=== PATIENT | male | born 1975 | race Caucasian/White ===

== ENCOUNTER 2023-08-20 10:16 | Observation (INO) ==
[2023-08-20] MEDS ORDERED: KETOROLAC TROMETHAMINE 15 MG/ML VIAL IV ONE (11:07)
--- NOTE | 2023-08-20 11:11 | Emergency Department Note ---
History of Present Illness General Chief complaint: Knee Injury/Pain Stated complaint: RIGHT KNEE INJURY, PAIN Time Seen by Provider: 08/20/23 10:56 History of Present Illness Maximum Pain Intensity: 7 This is a 48-year-old male that presents to the emergency department via private vehicle with complaints of "right knee pain". The patient without trauma or injury this past /Monday developed stiffness and discomfort of the right knee that has progressed since that time. He notes progressive swelling of the right knee. He denies any redness to the knee. Perhaps a little bit of increased warmth to the right knee compared to the left. No preceding illness. No fevers or chills. Patient does note that he had a tick bite to the left hip about 1 or 2 months ago. No rashes. The patient denies any pertinent past medical history. He does note a history of wisdom teeth/tonsil extraction. The patient denies any associated fevers or chills. No chest pain or shortness of breath. Pain is worse with attempted range of motion of the right knee actively. Home Medications Medication Instructions Recorded Confirmed Type acetaminophen 325 mg capsule 325 mg PO QID PRN PAIN/FEVER 03/15/22 08/20/23 History (Tylenol) aspirin 81 mg tablet,delayed 81 mg PO PM 03/15/22 08/20/23 History release multivitamin (Daily Multi-Vitamin 1 tab PO PM 03/15/22 08/20/23 History tablet) escitalopram oxalate 20 mg tablet 20 mg PO PM 08/20/23 08/20/23 History (Lexapro) lisinopril 40 mg tablet 40 mg PO PM 08/20/23 08/20/23 History metoprolol succinate 25 mg 25 mg PO PM 08/20/23 08/20/23 History tablet,extended release 24 hr pantoprazole 40 mg tablet,delayed 40 mg PO PM 08/20/23 08/20/23 History release rosuvastatin 10 mg tablet 20 mg PO PM 08/20/23 08/20/23 History semaglutide 1 mg/dose (4 mg/3 mL) 1 mg subcut WK 08/20/23 08/20/23 History subcutaneous pen injector (Ozempic) Allergies Allergy/AdvReac Type Severity Reaction Status Date / Time No Known Allergies Allergy Unknown Verified 05/01/23 10:18 Past Med/Surg History Medical History Obesity Umbilical hernia, incarcerated Lumbar disc disease Hypertension Obstructive sleep apnea Anxiety GERD (gastroesophageal reflux disease) Hyperlipidemia Surgical History H/O carpal tunnel repair (~2009) L wrist - [place] - 2009. S/P tonsillectomy and adenoidectomy History of wisdom tooth extraction Family History Uncle Myocardial infarction Grandmother (Paternal) Myocardial infarction Coronary heart disease Grandmother (Maternal) Lung cancer Mother Diabetes Stroke Dyslipidemia Father Diabetes Kidney transplant recipient Dyslipidemia Uncle Prostate cancer Other Colonic polyp Colorectal cancer Denies family history of Ovarian cancer Breast cancer Social History Smoking Status: Never smoker Second Hand Exposure: No; Do You Dip or Chew Tobacco: No; Hx Alcohol Use: Yes Alcohol Intake Frequency: Monthly or Less Hx Substance Use: No Preferred Language: Vincentian Communication Ability: Effective Visual Impairment: Limited Hearing Ability: Normal Beliefs That Will Affect Care: None marital status: Current Living Situation: Family Current Living Situation Comment: Lives with spouse son and daughter current occupational status: employed current occupation: cdl truck driver How many Children do You have: 2 Feels Safe at Home: Yes Childhood Exposure to Second-Hand Smoke: No caffeine: Yes (Coffee and soda) during the past year weight has: remained stable Dental Care, Regularly: Yes Physical Activity Frequency: Daily Seatbelt Use: always Sunscreen Use: Yes Assistive Devices: CPAP Review of Systems A total of 10 systems reviewed and were otherwise negative Physical Exam Vital Signs Vital Signs - 24 hr 08/20/23 10:31 Temperature 36.3 C L Temperature Source Temporal Artery Scan Pulse Rate 97 H Respiratory Rate 18 Respiratory Effort / Characteristics Non-Labored Spontaneous Respiratory Depth Normal Blood Pressure 127/75 Blood Pressure Mean 92 Pulse Oximetry 99 Oxygen Delivery Method Room Air Sepsis Recent Fever Within 48 Hours No Sepsis New/Unexplained Change in Mental Status No Sepsis Action Taken by Nursing No Action Required VITAL SIGNS - Vital signs and nursing notes were reviewed. Stable and afebrile. GENERAL -48-year-old male appearing his stated age who is in no acute distress. Communicates well with provider and answers questions appropriately. SKIN -the right knee is with evidence of effusion noting edema in the suprapatellar area. There is no erythema. There is perhaps a mild amount of increased warmth to the right knee. HEAD - NC/AT. EYES - Sclera anicteric. EARS - No deformities of external structures noted on gross examination bilaterally. NOSE - Midline and without cyanosis. No epistaxis or purulent drainage noted. MOUTH/OROPHARYNX - Without perioral cyanosis. NECK - Neck with FROM. No nuchal rigidity. LUNGS - CTA CARDIAC - RRR EXTREMITIES - No clubbing or peripheral cyanosis. No pretibial edema present. Skin as above. Right knee joint effusion noted. Decreased active range of motion of the right knee secondary to pain. No right calf tenderness. No deformity. No break in the integument. No erythema. Perhaps minimal increased warmth to the right knee compared to the left. The right lower extremity is appropriately warm and well-perfused. Right dorsalis pedis pulse within normal limits. +5/5 strength noted in UE/LE bilaterally. NEUROLOGIC - Cranial nerves II through XII grossly intact. Patient is sensory intact throughout the right lower extremity without deficit. PSYCH - A&Ox3 and cooperates fully with examiner. Pt is very pleasant and interacts well with examiner. Course Administered Medications Vancomycin HCl 2,250 mg/ (Sodium Chloride) 545 mls @ 200 mls/hr IV ONE ONE Stop: 08/20/23 20:13 Last Admin: 08/20/23 17:55 Dose: 200 mls/hr Documented By: SUKHWINDER Discontinued Medications Colchicine (Colchicine 0.6 Mg Tab) 1.2 mg PO NOW ONE Stop: 08/20/23 16:41 Last Admin: 08/20/23 16:48 Dose: 1.2 mg Documented By: JACOB Cefazolin Sodium (Ancef 2000mg) 2,000 mg in 15 mls @ 3.75 mls/min IV NOW STA Stop: 08/20/23 15:56 Last Admin: 08/20/23 16:07 Dose: 3.75 mls/min Documented By: JOSUE Ketorolac Tromethamine (Ketorolac Tromethamine 15 Mg/Ml Vial) 10 mg IV NOW ONE Stop: 08/20/23 11:08 Last Admin: 08/20/23 11:24 Dose: 10 mg Documented By: BECKIE(2) Lidocaine HCl (Xylocaine 1%/Sod Bicarb 20 Ml Vial) 20 ml INFIL NOW ONE Stop: 08/20/23 12:33 Last Admin: 08/20/23 13:20 Dose: 2 ml Documented By: LEXX Oxycodone HCl (Oxycodone Hcl Ir 5 Mg Tab (Immediate Release)) 5 mg PO NOW STA Stop: 08/20/23 15:11 Last Admin: 08/20/23 15:15 Dose: 5 mg Documented By: JOSUE Medical Decision Making Laboratory Data 08/20/23 11:21 08/20/23 11:21 Lab Results 08/20/23 08/20/23 08/20/23 Range/Units 11:21 11:31 13:42 WBC 11.41 H (4.8-10.8) K/ul RBC 4.78 (4.70-6.10) M/uL Hgb 13.5 L (14.0-18.0) g/dl Hct 41.2 L (42.0-52.0) % MCV 86.2 (80.0-100.0) fL MCH 28.2 (25.0-34.0) pg MCHC 32.8 (32.0-36.0) g/dL RDW Std Deviation 42.5 (36.4-46.3) fL RDW Coeff of Sharifa 13.5 (11.5-14.5) % Plt Count 326 (130-400) K/uL MPV 10.5 (9.4-12.4) fL Immature Gran % (Auto) 0.6 % Neut % (Auto) 79.6 % Lymph % (Auto) 10.3 % [place] % (Auto) 8.8 % Eos % (Auto) 0.3 % Baso % (Auto) 0.4 % Neut # (Auto) 9.10 H (1.40-6.50) K/uL Lymph # (Auto) 1.17 L (1.20-3.40) K/uL [place] # (Auto) 1.00 H (0.11-0.59) K/uL Eos # (Auto) 0.03 (0.00-0.50) K/uL Baso # (Auto) 0.04 (0.00-0.20) K/uL Immature Gran # (Auto) 0.07 (0.01-0.20) K/uL ESR 70 H (0-15) mm/hr Sodium 137 (136-145) mmol/L Potassium 4.4 (3.5-5.1) mmol/L Chloride 101 (98-107) mmol/L Carbon Dioxide 30 (21-32) mmol/L Anion Gap 6 (3-11) BUN 13 (6-23) mg/dl Creatinine 0.79 (0.6-1.4) mg/dl Est Cr Clr Drug Dosing Not Reportable Est GFR ( Amer) 123.1 ml/min Est GFR (Non-Af Amer) 106.2 ml/min BUN/Creatinine Ratio 16.5 (10-20) Glucose 104 H (70-99(Fasting)) mg/dl Uric Acid 5.9 (2.6-7.2) mg/dl Calcium 9.5 (8.6-10.3) mg/dl Total Bilirubin 0.6 (0.2-1.0) mg/dl AST 13 (13-39) U/L ALT 15 (7-52) U/L Alkaline Phosphatase 45 (34-104) U/L C-Reactive Protein 19.71 H (0-0.5) mg/dl Total Protein 7.8 (6.0-8.3) gm/dl Albumin 4.3 (3.4-5.0) gm/dl Globulin 3.5 (2.5-4.0) gm/dl Albumin/Globulin Ratio 1.2 (0.9-2) Procalcitonin 0.17 (0-0.5) ng/ml Fluid Comment Synovial Source Right Knee Synovial Color Meghan Synovial Appearance Cloudy Synovial WBC (Auto) 37674 H (0-200) /ul Synovial RBC (Auto) 75191 /uL Synovial Polynuclear % 93.8 % Synovial Mononuclear % 6.2 % Lyme Disease IgG Ab Negative (Negative) Lyme Disease IgM Ab Negative (Negative) Imaging Data Radiologist's Impression: Knee X-Ray 08/20/23 10:42 RIGHT KNEE 2 VIEWS CLINICAL HISTORY: Atraumatic right knee pain. FINDINGS: AP and crosstable lateral views of the right knee are obtained. No prior studies are available for comparison at the time of dictation. The skeletal structures are well mineralized. No fracture is seen. There is degenerative narrowing at the patellofemoral articulation. The medial and lateral joint spaces are maintained. There are small patellar enthesophytes, marginal osteophytes, and degenerative beaking of the tibial spine. There is a joint effusion. Mild soft tissue swelling is seen around the knee. IMPRESSION: 1. Soft tissue swelling and joint effusion with no radiographic evidence of acute fracture. 2. Mild degenerative change as above. Electronically signed by: Timo Oseguera M.D. 08/20/2023 11:11 AM [facility] Narrative Patient was seen and evaluated as above in room D5. Review was performed of nursing notes and vital signs. After obtaining a thorough history and physical examination the above work up was performed. Patient presents to us today for evaluation of right knee pain. No known trauma or injury. I suspect joint effusion clinically. Patient did have an x-ray ordered from triage and I reviewed the imaging. Joint effusion suspected. Patient does note that he was bitten by a tick 1 to 2 months ago. Options of care were discussed with the patient. IV access was established. Labs were drawn. He was offered something for pain and elected to proceed. IV Toradol was felt to be reasonable. No contraindication identified. Patient was reevaluated with some improvement. There is minimal leukocytosis 11.41. Mild anemia with hemoglobin of 13.5. No emergent metabolic disturbance. Mild hyperglycemia 104. The uric acid level was normal. Lyme testing was negative. The patient does have a large joint effusion by exam and x-ray. I do believe it to be reasonable at this time to proceed with synovial fluid analysis. Verbal consent was obtained and benefit versus risk of arthrocentesis discussed. Ultrasound was utilized at bedside for best approach. Area was then marked. Region was prepped x 3 with iodine. I used 2 mL of 1% lidocaine to anesthetize the superficial tissues. 18-gauge needle was then gently advanced and synovial fluid was immediately identified and drawn into the syringe. 10 cc were then sent to the lab. This was straw-colored in nature with a tiny bit of blood at the end of the draw. Region was then cleansed again with sterile saline, iodine and then dried with sterile gauze. A bacitracin dressing was applied followed by Aleksandr wrap. Synovial fluid analysis reveals 03558 WBCs. 15,000 RBCs. Crystals, Lyme and culture pending at this time. I called and spoke with the orthopedist at 3:33 PM. I spoke with Dr. Velasco. Recommendation at this time is admission, IV antibiotics, oral colchicine, n.p.o. after midnight and await remainder of the synovial fluid tests. I then presented these recommendations to the patient. Patient amenable to plan of care. Case discussed with hospitalist service. Please refer to further documentation regarding his stay. GCS: 15 In the evaluation and treatment of this patient the following differential diagnoses were entertained: Sprain, strain, fracture, dislocation, subluxation, contusion, Lyme disease, septic arthritis, crystal disease/gout, among others. Impression & Plan Effusion of knee joint right, Generalized nontraumatic pain of knee region, Knee pain Discharge Plan Visit Data Chief Complaint: Knee Injury/Pain Stated Complaint: RIGHT KNEE INJURY, PAIN ED Provider: Iain Colón ED Midlevel Provider: Kwabena Butler Discharge Problem: Effusion of knee joint right, Generalized nontraumatic pain of knee region, Knee pain Patient Disposition: Admitted As Inpatient Condition: Good Discharge Instructions Interventions: ED Discharge Assessment Last Done: 08/20/23 18:10 Discharge Problem: Knee pain Qualifiers: Chronicity: acute Laterality: right Qualified Code(s): M25.561 - Pain in right knee
--- NOTE | 2023-08-20 11:12 | XRay Report ---
RIGHT KNEE 2 VIEWS CLINICAL HISTORY: Atraumatic right knee pain. FINDINGS: AP and crosstable lateral views of the right knee are obtained. No prior studies are availa ble for comparison at the time of dictation. The skeletal structures are well mineralized. No fractur e is seen. There is degenerative narrowing at the patellofemoral articulation. The medial and lateral joint spaces are maintained. There are small patellar enthesophytes, marginal osteophytes, and degen erative beaking of the tibial spine. There is a joint effusion. Mild soft tissue swelling is seen augie und the knee. IMPRESSION: 1. Soft tissue swelling and joint effusion with no radiographic evidence of acute fracture. 2. Mild degenerative change as above. Electronically signed by: Timo Oseguera M.D. 08/20/2023 11:11 AM
[2023-08-20 11:46] LABS: Basophils # (auto) 0.04 K/uL (0.00-0.20); Basophils % (auto) 0.4 %; Eosinophils # (auto) 0.03 K/uL (0.00-0.50); Eosinophils % (auto) 0.3 %; Hematocrit (blood only) 41.2 % (42.0-52.0); Hemoglobin 13.5 g/dl (14.0-18.0); Immature Granulocytes # (auto) 0.07 K/uL (0.01-0.20); Immature Granulocytes % (auto) 0.6 %; Lymphocytes # (auto) 1.17 K/uL (1.20-3.40); Lymphocytes % (auto) 10.3 %; Mean Corpuscular Hemoglobin 28.2 pg (25.0-34.0); Mean Corpuscular Hgb Conc 32.8 g/dL (32.0-36.0); Mean Corpuscular Volume 86.2 fL (80.0-100.0); Mean Platelet Volume 10.5 fL (9.4-12.4); Monocytes % (auto) 8.8 %; Neutrophils % (auto) 79.6 %; Platelet Count 326 K/uL (130-400); RDW Coefficient of Variation 13.5 % (11.5-14.5); RDW Standard Deviation 42.5 fL (36.4-46.3); Red Blood Count 4.78 M/uL (4.70-6.10); White Blood Count 11.41 K/ul (4.8-10.8)
[2023-08-20 12:03] LABS: Alanine Aminotransferase 15 U/L (7-52); Albumin Globulin Ratio 1.2 (0.9-2); Albumin Level 4.3 gm/dl (3.4-5.0); Alkaline Phosphatase 45 U/L (34-104); Anion Gap 6 (3-11); Aspartate Aminotransferase 13 U/L (13-39); BUN Creatinine Ratio 16.5 (10-20); Bilirubin,Total 0.6 mg/dl (0.2-1.0); Blood Urea Nitrogen 13 mg/dl (6-23); Calcium 9.5 mg/dl (8.6-10.3); Carbon Dioxide 30 mmol/L (21-32); Chloride 101 mmol/L (98-107); Est GFR (African American) 123.1 ml/min; Est GFR (Non-African American) 106.2 ml/min; Globulin 3.5 gm/dl (2.5-4.0); Glucose 104 mg/dl (70-99(Fasting)); Potassium 4.4 mmol/L (3.5-5.1); Sodium 137 mmol/L (136-145); Total Protein 7.8 gm/dl (6.0-8.3); Uric Acid 5.9 mg/dl (2.6-7.2)
[2023-08-20 12:24] LABS: Lyme Ab IgG w/WB Rflx Negative (Negative); Lyme Ab IgM w/WB Rflx Negative (Negative)
[2023-08-20] MEDS ORDERED: XYLOCAINE 1%/SOD BICARB 20 ML VIAL INFIL ONE (12:32)
[2023-08-20 14:22] LABS: Appearance Synovial Fluid Cloudy; Color Synovial Fluid Amber; Mononuclear WBC Synovial 6.2 %; Polynuclear WBC Synovial 93.8 %; RBC Synovial Fluid Auto 15000 /uL; Source Synovial Fluid Right Knee; WBC Synovial Fluid Auto 44345 /ul (0-200)
[2023-08-20] MEDS ORDERED: oxyCODONE HCL IR 5 MG TAB (IMMEDIATE RELEASE) PO STA (15:10)
[2023-08-20] MEDS ORDERED: ceFAZolin 2000MG 2,000 MG/15 ML SYR IV STA (15:53)
--- NOTE | 2023-08-20 16:27 | History & Physical Report ---
Date of Service August 20, 2023 Assessment & Plan (1) Right knee pain: Plan: -Admit to med/surge -Currently stable, non-toxic appearing, and with pain currently controlled -Presented to the ED today for 4 days of progressive pain and swelling of the right knee -Patient denies fever, has mild leukocytosis, limited ROM due to pain -No recent trauma or injury to the RLE, denies history of previous episode in other joints and hx of Gout -Xray is negative for acute trauma but does show soft tissue swelling/effusion -ED spoke with Orthopedics, recommends admission with starting IV antibiotics and colchicine to cover possible septic arthritis and gout -Continue to follow infectious workup -S/P one dose of ancef in the ED -Will start 48 hours empiric Vancomycin to cover for MRSA -Will give 1.2 mg Colchicine today followed by 0.6 mg Daily for now -Orthopedics consult placed -Hold chemical DVT PPX for now with possible OR tomorrow, RODNEY's for now -HH Diet until midnight then NPO -AM cbc, bmp, mag (2) Hypertension: Plan: -Stable -Continue lisinopril, and metroprolol (3) Obstructive sleep apnea: Plan: -HS CPAP ordered (4) Anxiety: Plan: -Continue Lexapro (5) GERD (gastroesophageal reflux disease): Plan: -Continue PPI Plan The patient was discussed with Dr. Downs at the time of the admission History of Present Illness Chief Complaint: Right knee swelling/pain Primary Care Provider: BUCK Sebastian Pk is 48 year old male with a PMH significant for Hypertension, Hypercholesterolemia, GERD, LENARD, Anxiety, Lumbar Degenerative Disc Disease, and Bilateral Carotid Plaques who presented to the [facility] ED on 08/20 for progressive right knee swelling, pain, and ambulatory dysfunction. He remained stable in the ED. Labs were significant for a leukocytosis of 11 with neutrophile predominance 9. Xray of the right was read as "1. Soft tissue swelling and joint effusion with no radiographic evidence of acute fracture. 2. Mild degenerative change as above". The ED obtained synovial fluid analysis which shows butch, cloudy fluid [place] [address]84[address] WBC, 86405 RBC, with synovial crystal level pending. The ED spoke to Orthopedics who recommended medicine admission, starting Colchicine and IV antibiotics, and NPO at midnight if the patient needs to go to the OR tomorrow. Prior to admission the patient was given 10 mg IV toradol, 5 mg PO oxycodone, and 2gm IV ancef. At the time of the exam the patient was sitting in bed in no acute distress. He states that he had been in his normal state of health until he started to develop mild right knee pain on 07/18. The pain significantly progressed on 07/19 with increased swelling. He works for a [employer] and is on his feet for 10+ hours every shift. He worked a full shift on 07/19. Since then his pain and swelling has been so severe that he cannot put weight on the knee. He denies recent fever, chills, chest pain, SOB, abd pain, nausea, vomiting, diarrhea, dysuria, hematuria, melena, and recent trauma/injury to the RLE. His pain is currently undder control after the 5 mg PO oxycodone in the ED. He explains that he is pre-diabetic and is on Ozempic for weight loss at this time. He denies tobacco or alcohol use. He is a full code. Please refer to Dr. Downs's attestation for any changes to the treatment plan Allergies Allergy/AdvReac Type Severity Reaction Status Date / Time No Known Allergies Allergy Unknown Verified 05/01/23 10:18 Home Medications Medication Instructions Recorded Confirmed Type acetaminophen 325 mg capsule 325 mg PO QID PRN PAIN/FEVER 03/15/22 08/20/23 History (Tylenol) aspirin 81 mg tablet,delayed 81 mg PO PM 03/15/22 08/20/23 History release multivitamin (Daily Multi-Vitamin 1 tab PO PM 03/15/22 08/20/23 History tablet) escitalopram oxalate 20 mg tablet 20 mg PO PM 08/20/23 08/20/23 History (Lexapro) lisinopril 40 mg tablet 40 mg PO PM 08/20/23 08/20/23 History metoprolol succinate 25 mg 25 mg PO PM 08/20/23 08/20/23 History tablet,extended release 24 hr pantoprazole 40 mg tablet,delayed 40 mg PO PM 08/20/23 08/20/23 History release rosuvastatin 10 mg tablet 20 mg PO PM 08/20/23 08/20/23 History semaglutide 1 mg/dose (4 mg/3 mL) 1 mg subcut WK 08/20/23 08/20/23 History subcutaneous pen injector (Ozempic) Past Med/Surg History Medical History Obesity Umbilical hernia, incarcerated Lumbar disc disease Hypertension Obstructive sleep apnea Anxiety GERD (gastroesophageal reflux disease) Hyperlipidemia Surgical History H/O carpal tunnel repair (~2009) L wrist - [place] - 2009. S/P tonsillectomy and adenoidectomy History of wisdom tooth extraction Family History Uncle Myocardial infarction Grandmother (Paternal) Myocardial infarction Coronary heart disease Grandmother (Maternal) Lung cancer Mother Diabetes Stroke Dyslipidemia Father Diabetes Kidney transplant recipient Dyslipidemia Uncle Prostate cancer Other Colonic polyp Colorectal cancer Denies family history of Ovarian cancer Breast cancer Social History Smoking Status: Never smoker Second Hand Exposure: No; Do You Dip or Chew Tobacco: No; Hx Alcohol Use: No Hx Substance Use: No Preferred Language: Hungarian Communication Ability: Effective Visual Impairment: Limited Hearing Ability: Normal Fan Runner Required: No Beliefs That Will Affect Care: None marital status: Current Living Situation: Family Current Living Situation Comment: Lives with spouse son and daughter current occupational status: employed current occupation: delivery driver/supervisor How many Children do You have: 2 Other Information That Helps Us Care for You: No Feels Safe at Home: Yes Safety Concerns: Feels Safe At This Time Childhood Exposure to Second-Hand Smoke: No caffeine: Yes (Coffee and soda) during the past year weight has: remained stable Dental Care, Regularly: Yes Physical Activity Frequency: Daily Seatbelt Use: always Sunscreen Use: Yes Assistive Devices: Contacts Physical Exam Physical Exam: Physical Exam: General: In no acute distress, stated age, well-nourished, good hygiene HEENT: Normocephalic, atraumatic, no scleral icterus, pupils around round, symmetrical, and reactive to light, moist mucus membranes, trachea midline, no thyromegaly Chest/Pulm: No respiratory distress, symmetrical chest expansion, clear breath sounds throughout Cardiac: RRR, no murmurs noted Abdomen: Negative for ascites and bruising, normoactive bowel sounds, soft, non-tender to palpation throughout Musculoskeletal: Right knee with obvious joint effusion, significantly tender to palpation and with movement, patient is without signs of erythema or cellulitis of the right knee and RLE, limited ROM of the right knee due to pain Extremities: Radial, dorsalis pedis, and posterior tibial pulses are intact and symmetrical, no edema noted in the BL LE's Skin: Warm, dry, no rashes , lesions, or scars noted Neuro: Alert and oriented to person, place, month, year, and president, no focal defects, no tremors noted Psych: No acute distress, calm and cooperative during the exam Results & Data Results & Data Vital Signs (Past 12 Hours) Vital Signs Temp Pulse Resp BP Pulse Ox O2 Del Method 08/20/23 10:31 36.3 C L 97 H 18 127/75 99 Room Air Laboratory Results Abnormal lab results 08/20/23 08/20/23 Range/Units 11:21 13:42 WBC 11.41 H (4.8-10.8) K/ul Hgb 13.5 L (14.0-18.0) g/dl Hct 41.2 L (42.0-52.0) % Neut # (Auto) 9.10 H (1.40-6.50) K/uL Lymph # (Auto) 1.17 L (1.20-3.40) K/uL [place] # (Auto) 1.00 H (0.11-0.59) K/uL ESR 70 H (0-15) mm/hr Glucose 104 H (70-99(Fasting)) mg/dl C-Reactive Protein 19.71 H (0-0.5) mg/dl Synovial WBC (Auto) 48388 H (0-200) /ul Diagnostic Findings Knee X-Ray 08/20/23 10:42 RIGHT KNEE 2 VIEWS CLINICAL HISTORY: Atraumatic right knee pain. FINDINGS: AP and crosstable lateral views of the right knee are obtained. No prior studies are available for comparison at the time of dictation. The skeletal structures are well mineralized. No fracture is seen. There is degenera tive narrowing at the patellofemoral articulation. The medial and lateral joint spaces are maintained. There are small patellar enthesophytes, marginal osteophytes, and degenerative beaking of the tibial spine. There is a joint effusion. Mild soft tissue swelling is seen around the knee. IMPRESSION: 1. Soft tissue swelling and joint effusion with no radiographic evidence of acute fracture. 2. Mild degenerative change as above. Electronically signed by: Timo Oseguera M.D. 08/20/2023 11:11 AM Code Status & VTE Plan Code Status Full code VTE Prophylaxis Plan VTE Prophylaxis will be ordered: Yes Supervising Physician Co-Signing Physician Notes I personally saw and examined the patient. I verified all moran points and agree with Rubén Cartagena PA-C with the following exceptions and/or additions: 48 year old male presents to the ER with spontaneous right knee effusion. No prior effusions or known arthritis. No known trauma but he does work in warehouse. O/E No rash, right knee effusion without overlying skin changes, unable to flex beyond 90 degrees due to pain, no catching, too painful for ligament testing. A/P Right knee effusion - Antibiotics as advised by orthopedics pending culture although reassuringly his gram stain is negative. Will add ceftriaxone to vancomycin as no gram stain to base antibiotic on and at risk age group for gonococcal infections. More likely gout awaiting crystal pathology which will be done tomorrow. Consult orthopedics. Suspect this is more than just localized inflammation from an injury given elevated CRP/ESR and agree with colchicine empirically since gout appears to be the most likely diagnosis. PG Care Time/CCT Total # of Minutes Spent Total Time Spent with Patient: Total time spent is greater than 50% in coordination of care (as documented) at patient's floor/unit and/or counseling patient: [place] [address] INT INP/OBS CARE 2/55MIN Patient Type Established Medical Decision Making Moderate Complexity Diagnoses Right knee pain M25.561 Hypertension I10 Obstructive sleep apnea G47.33 Anxiety F41.9 GERD (gastroesophageal reflux disease) K21.9
[2023-08-20] MEDS ORDERED: ACETAMINOPHEN 325 MG TAB PO PRN (16:37)
[2023-08-20 16:40] LABS: C Reactive Protein 19.71 mg/dl (0-0.5)
[2023-08-20] MEDS ORDERED: COLCHICINE 0.6 MG TAB PO ONE (16:40)
[2023-08-20] MEDS ORDERED: VANCOMYCIN CONSULT ACTIVE PRN (17:02)
[2023-08-20] MEDS ORDERED: PANTOprazole 40 MG TAB PO STA (17:08)
[2023-08-20] MEDS ORDERED: VANCOMYCIN HCL 2,250 MG in SODIUM CHLORIDE 0.9% 500 ML IV ONE (17:30)
[2023-08-20] MEDS ORDERED: INFLUENZA VIRUS QUADRIVALENT VACCINE (IIV4) 0.5 ML SYR IM ONE (18:22)
--- NOTE | 2023-08-20 18:55 | Orthopedic Consultation ---
Date of Consultation August 20, 2023 Assessment & Plan (1) Knee pain: Findings discussed. This could be gout pseudogout Lyme disease or septic bacterial arthritis. Currently there is nothing to differentiate amongst these. We will not have any Gram stain or culture results back until tomorrow. I will not have crystal analysis done until tomorrow. X-rays are reviewed and show an effusion but nothing in terms of fracture or arthritis. Sed rate and C-reactive protein are both markedly elevated and his white count is slightly elevated at 11. I would recommend that we treat for both conditions and await lab information. Started on colchicine as well as vancomycin which has been done by the medical service. Thank you. N.p.o. after midnight. I discussed with him the treatment for bacterial septic arthritis would be surgery. Gout can be treated medically or possibly with an injection. Will hold on doing anything further until we get more information. History of Present Illness Attending Physician: Nico Downs MD History of Present Illness Pk is 48. He has a 3-day history progressive right knee pain and swelling. Came to the ER. The knee was aspirated. I was consulted for further evaluation. There is no history of injury. He has never had anything like gout. He may have had strep throat a month ago. He denies fever chills or sweats. At rest pain is 1 out of 10. With movement pain is 6 out of 10. Allergies Allergy/AdvReac Type Severity Reaction Status Date / Time No Known Allergies Allergy Unknown Verified 05/01/23 10:18 Home Medications Medication Instructions Recorded Confirmed Type acetaminophen 325 mg capsule 325 mg PO QID PRN PAIN/FEVER 03/15/22 08/20/23 History (Tylenol) aspirin 81 mg tablet,delayed 81 mg PO PM 03/15/22 08/20/23 History release multivitamin (Daily Multi-Vitamin 1 tab PO PM 03/15/22 08/20/23 History tablet) escitalopram oxalate 20 mg tablet 20 mg PO PM 08/20/23 08/20/23 History (Lexapro) lisinopril 40 mg tablet 40 mg PO PM 08/20/23 08/20/23 History metoprolol succinate 25 mg 25 mg PO PM 08/20/23 08/20/23 History tablet,extended release 24 hr pantoprazole 40 mg tablet,delayed 40 mg PO PM 08/20/23 08/20/23 History release rosuvastatin 10 mg tablet 20 mg PO PM 08/20/23 08/20/23 History semaglutide 1 mg/dose (4 mg/3 mL) 1 mg subcut WK 08/20/23 08/20/23 History subcutaneous pen injector (Ozempic) Patient History Medical History Obesity Umbilical hernia, incarcerated Lumbar disc disease Hypertension Obstructive sleep apnea Anxiety GERD (gastroesophageal reflux disease) Hyperlipidemia Surgical History H/O carpal tunnel repair (~2009) L wrist - [place] - 2009. S/P tonsillectomy and adenoidectomy History of wisdom tooth extraction Family History Uncle Myocardial infarction Grandmother (Paternal) Myocardial infarction Coronary heart disease Grandmother (Maternal) Lung cancer Mother Diabetes Stroke Dyslipidemia Father Diabetes Kidney transplant recipient Dyslipidemia Uncle Prostate cancer Other Colonic polyp Colorectal cancer Denies family history of Ovarian cancer Breast cancer Social History Smoking Status: Never smoker Second Hand Exposure: No; Do You Dip or Chew Tobacco: No; Hx Alcohol Use: No Hx Substance Use: No Preferred Language: Faroese Communication Ability: Effective Visual Impairment: Limited Hearing Ability: Normal Internal Affairs Investigator Required: No Beliefs That Will Affect Care: None marital status: Current Living Situation: Family Current Living Situation Comment: Lives with spouse son and daughter current occupational status: employed current occupation: cdl dedicated truck driver How many Children do You have: 2 Other Information That Helps Us Care for You: No Feels Safe at Home: Yes Safety Concerns: Feels Safe At This Time Childhood Exposure to Second-Hand Smoke: No caffeine: Yes (Coffee and soda) during the past year weight has: remained stable Dental Care, Regularly: Yes Physical Activity Frequency: Daily Seatbelt Use: always Sunscreen Use: Yes Assistive Devices: Contacts Physical Exam Physical Exam: DP and PT pulses are 1+. Sensation intact ankle and toe plantarflexion dorsiflexion inversion eversion is 5 out of 5. Knee motion is 0/10/60. There is no significant pain with movement of the hip. Palpation of the knee is tender diffusely. Grossly intact Ciro as well as varus and valgus stress. Large right knee effusion with increased warmth but no erythema or induration. Thigh foot ankle leg and calf are unremarkable. Sensation is intact to light touch. Results & Data Vital Signs (Past 12 Hours) Vital Signs Temp Pulse Pulse Resp BP BP Pulse Ox 08/20/23 17:45 36.9 C 89 16 134/71 95 08/20/23 17:31 15 103/60 98 08/20/23 10:31 36.3 C L 97 H 18 127/75 99 O2 Del Method 08/20/23 17:45 Room Air 08/20/23 17:31 Room Air 08/20/23 10:31 Room Air Laboratory Results Laboratory Results WBC 11.41 K/ul (4.8-10.8) H 08/20/23 11:21 RBC 4.78 M/uL (4.70-6.10) 08/20/23 11:21 Hgb 13.5 g/dl (14.0-18.0) L 08/20/23 11:21 Hct 41.2 % (42.0-52.0) L 08/20/23 11:21 MCV 86.2 fL (80.0-100.0) 08/20/23 11:21 MCH 28.2 pg (25.0-34.0) 08/20/23 11:21 MCHC 32.8 g/dL (32.0-36.0) 08/20/23 11:21 RDW Std Deviation 42.5 fL (36.4-46.3) 08/20/23 11:21 RDW Coeff of Sharifa 13.5 % (11.5-14.5) 08/20/23 11:21 Plt Count 326 K/uL (130-400) 08/20/23 11:21 MPV 10.5 fL (9.4-12.4) 08/20/23 11:21 Immature Gran % (Auto) 0.6 % 08/20/23 11:21 Neut % (Auto) 79.6 % 08/20/23 11:21 Lymph % (Auto) 10.3 % 08/20/23 11:21 Latimer % (Auto) 8.8 % 08/20/23 11:21 Eos % (Auto) 0.3 % 08/20/23 11:21 Baso % (Auto) 0.4 % 08/20/23 11:21 Neut # (Auto) 9.10 K/uL (1.40-6.50) H 08/20/23 11:21 Lymph # (Auto) 1.17 K/uL (1.20-3.40) L 08/20/23 11:21 Latimer # (Auto) 1.00 K/uL (0.11-0.59) H 08/20/23 11:21 Eos # (Auto) 0.03 K/uL (0.00-0.50) 08/20/23 11:21 Baso # (Auto) 0.04 K/uL (0.00-0.20) 08/20/23 11:21 Immature Gran # (Auto) 0.07 K/uL (0.01-0.20) 08/20/23 11:21 ESR 70 mm/hr (0-15) H 08/20/23 11:21 Sodium 137 mmol/L (136-145) 08/20/23 11:21 Potassium 4.4 mmol/L (3.5-5.1) 08/20/23 11:21 Chloride 101 mmol/L (98-107) 08/20/23 11:21 Carbon Dioxide 30 mmol/L (21-32) 08/20/23 11:21 Anion Gap 6 (3-11) 08/20/23 11:21 BUN 13 mg/dl (6-23) 08/20/23 11:21 Creatinine 0.79 mg/dl (0.6-1.4) 08/20/23 11:21 Est Cr Clr Drug Dosing Not Reportable 08/20/23 11:21 Est GFR ( Amer) 123.1 ml/min 08/20/23 11:21 Est GFR (Non-Af Amer) 106.2 ml/min 08/20/23 11:21 BUN/Creatinine Ratio 16.5 (10-20) 08/20/23 11:21 Glucose 104 mg/dl (70-99(Fasting)) H 08/20/23 11:21 Uric Acid 5.9 mg/dl (2.6-7.2) 08/20/23 11:21 Calcium 9.5 mg/dl (8.6-10.3) 08/20/23 11:21 Total Bilirubin 0.6 mg/dl (0.2-1.0) 08/20/23 11:21 AST 13 U/L (13-39) 08/20/23 11:21 ALT 15 U/L (7-52) 08/20/23 11:21 Alkaline Phosphatase 45 U/L (34-104) 08/20/23 11:21 C-Reactive Protein 19.71 mg/dl (0-0.5) H 08/20/23 11:21 Total Protein 7.8 gm/dl (6.0-8.3) 08/20/23 11:21 Albumin 4.3 gm/dl (3.4-5.0) 08/20/23 11:21 Globulin 3.5 gm/dl (2.5-4.0) 08/20/23 11:21 Albumin/Globulin Ratio 1.2 (0.9-2) 08/20/23 11:21 Procalcitonin 0.17 ng/ml (0-0.5) 08/20/23 11:31 Fluid Comment 08/20/23 13:42 Synovial Source Right Knee 08/20/23 13:42 Synovial Color Meghan 08/20/23 13:42 Synovial Appearance Cloudy 08/20/23 13:42 Synovial WBC (Auto) 47313 /ul (0-200) H 08/20/23 13:42 Synovial RBC (Auto) 42832 /uL 08/20/23 13:42 Synovial Polynuclear % 93.8 % 08/20/23 13:42 Synovial Mononuclear % 6.2 % 08/20/23 13:42 Lyme Disease IgG Ab Negative (Negative) 08/20/23 11:21 Lyme Disease IgM Ab Negative (Negative) 08/20/23 11:21 Impressions Knee X-Ray 08/20/23 10:42 RIGHT KNEE 2 VIEWS CLINICAL HISTORY: Atraumatic right knee pain. FINDINGS: AP and crosstable lateral views of the right knee are obtained. No prior studies are available for comparison at the time of dictation. The skeletal structures are well mineralized. No fracture is seen. There is degenerative narrowing at the patellofemoral articulation. The medial and lateral joint spaces are maintained. There are small patellar enthesophytes, marginal osteophytes, and degenerative beaking of the tibial spine. There is a joint effusion. Mild soft tissue swelling is seen around the knee. IMPRESSION: 1. Soft tissue swelling and joint effusion with no radiographic evidence of acute fracture. 2. Mild degenerative change as above. Electronically signed by: Timo Oseguera M.D. 08/20/2023 11:11 AM (1) Knee pain Chronicity: acute Laterality: right Qualified Code(s): M25.561 - Pain in right knee
--- NOTE | 2023-08-20 19:03 | Pharmacy Report ---
Pharmacy PK ABX Note - Date of Service August 20, 2023 - Assessment and Plan Assessment 48 year old M receiving VANC-IV for EMPIRIC treatment of R KNEE PAIN/SWELLING. Cultures pending. Day # 1 of antimicrobial therapy. Plan Vancomycin * Loading dose: 2250mg (21mg/kg) IV x 1 * Maintenance dose: 1750mg IV every 12 hours * Regimen is predicted to achieve target AUC/NASRIN of 400-600 mg/L.hr * Will reassess need for a Vanc random level 08/21. Pharmacy will continue to follow and will adjust dose/frequency as necessary. Thank you. Pharmacy has transitioned to AUC monitoring for vancomycin. AUC/NASRIN is the preferred PK/PD target and is associated with decreased risk of nephrotoxicity compared to traditional trough targets.
[2023-08-20] MEDS ORDERED: ESCITALOPRAM OXALATE 20 MG TAB PO SCH (21:00)
[2023-08-20] MEDS ORDERED: ROSUVASTATIN CALCIUM 20 MG TAB PO SCH (21:00)
[2023-08-20] MEDS ORDERED: ASPIRIN 81 MG ECTAB PO SCH (21:00)
[2023-08-20] MEDS ORDERED: METOPROLOL SUCC 25MG EXT REL TAB PO SCH (21:00)
[2023-08-20] MEDS ORDERED: lisinopril 40 MG TAB PO SCH (21:00)
[2023-08-20] MEDS ORDERED: cefTRIAXone SODIUM 2,000 MG in DEXTROSE 5 % MINI-B 50 ML IV SCH (21:00)
[2023-08-20] MEDS ORDERED: PANTOprazole 40 MG TAB PO SCH (21:00)
[2023-08-20] MEDS: oxyCODONE HCL IR 5 MG TAB (IMMEDIATE RELEASE) PO PRN (21:29)
[2023-08-21] MEDS ORDERED: VANCOMYCIN HCL 1,750 MG in SODIUM CHLORIDE 0.9% 500 ML IV SCH (02:00)
[2023-08-21 07:33] LABS: Basophils # (auto) 0.03 K/uL (0.00-0.20); Basophils % (auto) 0.3 %; Eosinophils # (auto) 0.12 K/uL (0.00-0.50); Eosinophils % (auto) 1.4 %; Hematocrit (blood only) 37.7 % (42.0-52.0); Hemoglobin 12.1 g/dl (14.0-18.0); Immature Granulocytes # (auto) 0.03 K/uL (0.01-0.20); Immature Granulocytes % (auto) 0.3 %; Lymphocytes # (auto) 1.54 K/uL (1.20-3.40); Lymphocytes % (auto) 17.6 %; Mean Corpuscular Hemoglobin 28.1 pg (25.0-34.0); Mean Corpuscular Hgb Conc 32.1 g/dL (32.0-36.0); Mean Corpuscular Volume 87.5 fL (80.0-100.0); Mean Platelet Volume 10.4 fL (9.4-12.4); Monocytes # (auto) 1.02 K/uL (0.11-0.59); Monocytes % (auto) 11.6 %; Neutrophils # (auto) 6.03 K/uL (1.40-6.50); Neutrophils % (auto) 68.8 %; Platelet Count 294 K/uL (130-400); RDW Coefficient of Variation 13.6 % (11.5-14.5); RDW Standard Deviation 43.8 fL (36.4-46.3); Red Blood Count 4.31 M/uL (4.70-6.10); White Blood Count 8.77 K/ul (4.8-10.8)
[2023-08-21 07:54] LABS: BUN Creatinine Ratio 17.4 (10-20); Calcium 8.5 mg/dl (8.6-10.3); Creatinine Clr Calc Pharmacy 121.7 ml/min; Est GFR (African American) 113.6 ml/min; Potassium 4.2 mmol/L (3.5-5.1)
[2023-08-21] MEDS ORDERED: COLCHICINE 0.6 MG TAB PO SCH (09:00)
--- NOTE | 2023-08-21 09:37 | Hospitalist Progress Note ---
Date of Service August 21, 2023 Assessment & Plan (1) Right knee pain: Plan: -Presented to the ED today for 4 days of progressive pain and swelling of the right knee. No known injury/trauma -Patient denies fever, has mild leukocytosis, limited ROM due to pain -Xray: Negative for acute trauma but does show soft tissue swelling/effusion -S/p arthrocentesis in the ED - fluid culture pending -Gout vs septic arthritis -Ortho Consulted, appreciate recs -IV abx: s/p ancef x1 in ED, continue 48 hours empiric Vancomycin to cover for MRSA -Continue Colchicine 0.6mg daily -Keep NPO until crystal results --> if gout then can drain and steroid injection -Hold chemical DVT PPX for now with possible OR tomorrow, RODNEY's for now (2) Hypertension: Plan: -Stable -Continue lisinopril, and metroprolol (3) Obstructive sleep apnea: Plan: -HS CPAP ordered (4) Anxiety: Plan: -Continue Lexapro (5) GERD (gastroesophageal reflux disease): Plan: -Continue PPI Admission and Anticipated Discharge Date Admission Date: August 20, 2023 Subjective 0905 - Patient lying in bed, right knee in meri wrap. Patient denies pain at rest, but states that he is still unable to bearweight on that side. States knee pain came on suddenly, no falls or trauma to the area. Denies CP or SOB. Review of Systems Review of Systems: All systems reviewed & are unremarkable except as noted in Subjective Physical Exam Physical Exam: General: WN/WD, NAD, VS as above, pleasant Resp: normal respiratory effort, lungs clear to auscultation CV: RRR, no murmur, Abd: normal bowel sounds, non tender, no hepatosplenomegaly Extremities:meri bandage in place, mild edema right knee. distal sensation intact. No ankle edema. Neuro: A&O x3, Skin: intact, no lesions noted Results & Data Results & Data Vital Signs (Past 12 Hours) Vital Signs Temp Pulse Resp BP Pulse Ox O2 Del Method 08/21/23 07:51 36.4 C L 81 16 128/78 95 Room Air Laboratory Results CBC and chemistry reviewed PG Care Time/CCT Total # of Minutes Spent Total Time Spent with Patient: Total time spent is greater than 50% in coordination of care (as documented) at patient's floor/unit and/or counseling patient: Coding Diagnoses Right knee pain M25.561 Hypertension I10 Obstructive sleep apnea G47.33 Anxiety F41.9 GERD (gastroesophageal reflux disease) K21.9
--- NOTE | 2023-08-21 09:45 | Orthopedic Progress Note ---
Date of Service August 21, 2023 Assessment & Plan (1) Effusion of knee joint right: Plan: 48 year old male with non-traumatic right knee effusion Gout vs infected joint Synovial WBC 44,345, lyme negative Crystals and cultures pending Gram stain - no organisms seen Continue with ALEKSANDR wrap for compression, pain control and DVT phx per primary Keep NPO Will await for crystal results, if gout confirmed then can drain knee and do steroid injection Case discussed with Dr Velasco Admission and Anticipated Discharge Date Admission Date: August 20, 2023 Subjective Pt seen and examined bedside. He says he feels somewhat better after having it drained. Denies F/C, malaise. Denies redness/warmth. He says it has been swollen since Monday but got really bad yesterday. Issue bending and weight bearing. No h/o gout. No issues with knee prior. Pt says he found a tick imbedded on his right hip about a month ago. Physical Exam Physical Exam: Aleksandr wrap taken down. Moderate knee effusion. Patient TTP. No redness or warmth. Patient has full extension but only about 15 degrees flexion. No joint line tenderness, mostly tender over suprapatellar pouch. Small abrasion over meyer. No breaks in skin over knee. Results & Data Vital Signs (Past 12 Hours) Vital Signs Temp Pulse Resp BP Pulse Ox O2 Del Method 08/21/23 07:51 36.4 C L 81 16 128/78 95 Room Air Laboratory Results 08/21/23 08/20/23 08/20/23 Range/Units 06:57 13:42 11:31 WBC 8.77 (4.8-10.8) K/ul RBC 4.31 L (4.70-6.10) M/uL Hgb 12.1 L (14.0-18.0) g/dl Hct 37.7 L (42.0-52.0) % MCV 87.5 (80.0-100.0) fL MCH 28.1 (25.0-34.0) pg MCHC 32.1 (32.0-36.0) g/dL RDW Std Deviation 43.8 (36.4-46.3) fL RDW Coeff of Sharifa 13.6 (11.5-14.5) % Plt Count 294 (130-400) K/uL MPV 10.4 (9.4-12.4) fL Immature Gran % (Auto) 0.3 % Neut % (Auto) 68.8 % Lymph % (Auto) 17.6 % Mercer % (Auto) 11.6 % Eos % (Auto) 1.4 % Baso % (Auto) 0.3 % Neut # (Auto) 6.03 (1.40-6.50) K/uL Lymph # (Auto) 1.54 (1.20-3.40) K/uL Mercer # (Auto) 1.02 H (0.11-0.59) K/uL Eos # (Auto) 0.12 (0.00-0.50) K/uL Baso # (Auto) 0.03 (0.00-0.20) K/uL Immature Gran # (Auto) 0.03 (0.01-0.20) K/uL ESR (0-15) mm/hr Sodium 137 (136-145) mmol/L Potassium 4.2 (3.5-5.1) mmol/L Chloride 103 (98-107) mmol/L Carbon Dioxide 30 (21-32) mmol/L Anion Gap 4 (3-11) BUN 16 (6-23) mg/dl Creatinine 0.92 (0.6-1.4) mg/dl Est Cr Clr Drug Dosing 121.7 Est GFR ( Amer) 113.6 ml/min Est GFR (Non-Af Amer) 98.0 ml/min BUN/Creatinine Ratio 17.4 (10-20) Glucose 99 (70-99(Fasting)) mg/dl Uric Acid (2.6-7.2) mg/dl Calcium 8.5 L (8.6-10.3) mg/dl Total Bilirubin (0.2-1.0) mg/dl AST (13-39) U/L ALT (7-52) U/L Alkaline Phosphatase (34-104) U/L C-Reactive Protein (0-0.5) mg/dl Total Protein (6.0-8.3) gm/dl Albumin (3.4-5.0) gm/dl Globulin (2.5-4.0) gm/dl Albumin/Globulin Ratio (0.9-2) Procalcitonin 0.17 (0-0.5) ng/ml Fld Lyme DNA (PCR) Pending Fluid Comment Synovial Source Right Knee Synovial Color Meghan Synovial Appearance Cloudy Synovial WBC (Auto) 85741 H (0-200) /ul Synovial RBC (Auto) 86321 /uL Synovial Polynuclear % 93.8 % Synovial Mononuclear % 6.2 % Synovial Crystals Pending Lyme Specimen Source Pending Lyme Disease IgG Ab (Negative) Lyme Disease IgM Ab (Negative) 08/20/23 Range/Units 11:21 WBC 11.41 H (4.8-10.8) K/ul RBC 4.78 (4.70-6.10) M/uL Hgb 13.5 L (14.0-18.0) g/dl Hct 41.2 L (42.0-52.0) % MCV 86.2 (80.0-100.0) fL MCH 28.2 (25.0-34.0) pg MCHC 32.8 (32.0-36.0) g/dL RDW Std Deviation 42.5 (36.4-46.3) fL RDW Coeff of Sharifa 13.5 (11.5-14.5) % Plt Count 326 (130-400) K/uL MPV 10.5 (9.4-12.4) fL Immature Gran % (Auto) 0.6 % Neut % (Auto) 79.6 % Lymph % (Auto) 10.3 % Mercer % (Auto) 8.8 % Eos % (Auto) 0.3 % Baso % (Auto) 0.4 % Neut # (Auto) 9.10 H (1.40-6.50) K/uL Lymph # (Auto) 1.17 L (1.20-3.40) K/uL Mercer # (Auto) 1.00 H (0.11-0.59) K/uL Eos # (Auto) 0.03 (0.00-0.50) K/uL Baso # (Auto) 0.04 (0.00-0.20) K/uL Immature Gran # (Auto) 0.07 (0.01-0.20) K/uL ESR 70 H (0-15) mm/hr Sodium 137 (136-145) mmol/L Potassium 4.4 (3.5-5.1) mmol/L Chloride 101 (98-107) mmol/L Carbon Dioxide 30 (21-32) mmol/L Anion Gap 6 (3-11) BUN 13 (6-23) mg/dl Creatinine 0.79 (0.6-1.4) mg/dl Est Cr Clr Drug Dosing Not Reportable Est GFR ( Amer) 123.1 ml/min Est GFR (Non-Af Amer) 106.2 ml/min BUN/Creatinine Ratio 16.5 (10-20) Glucose 104 H (70-99(Fasting)) mg/dl Uric Acid 5.9 (2.6-7.2) mg/dl Calcium 9.5 (8.6-10.3) mg/dl Total Bilirubin 0.6 (0.2-1.0) mg/dl AST 13 (13-39) U/L ALT 15 (7-52) U/L Alkaline Phosphatase 45 (34-104) U/L C-Reactive Protein 19.71 H (0-0.5) mg/dl Total Protein 7.8 (6.0-8.3) gm/dl Albumin 4.3 (3.4-5.0) gm/dl Globulin 3.5 (2.5-4.0) gm/dl Albumin/Globulin Ratio 1.2 (0.9-2) Procalcitonin (0-0.5) ng/ml Fld Lyme DNA (PCR) Fluid Comment Synovial Source Synovial Color Synovial Appearance Synovial WBC (Auto) (0-200) /ul Synovial RBC (Auto) /uL Synovial Polynuclear % % Synovial Mononuclear % % Synovial Crystals Lyme Specimen Source Lyme Disease IgG Ab Negative (Negative) Lyme Disease IgM Ab Negative (Negative)
[2023-08-21] MEDS: oxyCODONE HCL IR 5 MG TAB (IMMEDIATE RELEASE) PO PRN (11:42)
[2023-08-21] MEDS ORDERED: methylPREDNISolone acetate 40 MG/ML VIAL INJ ONE (13:00)
[2023-08-21] MEDS ORDERED: methylPREDNISolone 40 MG in SYRINGE 0 ML IV ONE (13:30)
[2023-08-21] MEDS ORDERED: LIDOCAINE 1% LOCAL 20 ML VIAL INJ ONE (13:40)
--- NOTE | 2023-08-21 14:36 | Discharge Summary ---
Discharge Summary Date of Service August 21, 2023 Notes For Next Care Provider Initial fluid aspiration negative for infection or gout --> second aspiration done 08/21. Patient has follow up with Ortho 08/25. Medication Changes From Visit No changes Admission HPI Per Admitting Provider Pk is 48 year old male with a PMH significant for Hypertension, Hypercholesterolemia, GERD, LENARD, Anxiety, Lumbar Degenerative Disc Disease, and Bilateral Carotid Plaques who presented to the [facility] ED on 08/20 for progressive right knee swelling, pain, and ambulatory dysfunction. He remained stable in the ED. Labs were significant for a leukocytosis of 11 with neutrophile predominance 9. Xray of the right was read as "1. Soft tissue swelling and joint effusion with no radiographic evidence of acute fracture. 2. Mild degenerative change as above". The ED obtained synovial fluid analysis which [place] [address] WBC, 84066 RBC, with synovial crystal level pending. The ED spoke to Orthopedics who recommended medicine admission, starting Colchicine and IV antibiotics, and NPO at midnight if the patient needs to go to the OR tomorrow. Prior to admission the patient was given 10 mg IV toradol, 5 mg PO oxycodone, and 2gm IV ancef. At the time of the exam the patient was sitting in bed in no acute distress. He states that he had been in his normal state of health until he started to develop mild right knee pain on 07/18. The pain significantly progressed on 07/19 with increased swelling. He works for a [employer] and is on his feet for 10+ hours every shift. He worked a full shift on 07/19. Since then his pain and swelling has been so severe that he cannot put weight on the knee. He denies recent fever, chills, chest pain, SOB, abd pain, nausea, vomiting, diarrhea, dysuria, hematuria, melena, and recent trauma/injury to the RLE. His pain is currently undder control after the 5 mg PO oxycodone in the ED. He explains that he is pre-diabetic and is on Ozempic for weight loss at this time. He denies tobacco or alcohol use. He is a full code. Please refer to Dr. Downs's attestation for any changes to the treatment plan Principal Dx & Hospital Course #1 = Principal Diagnosis (1) Right knee pain: -Presented to the ED today for 4 days of progressive pain and swelling of the right knee. No known trauma. -Xray: negative for acute trauma but does show soft tissue swelling/effusion -Ortho Consulted - Colchicine for gout started, stopped with negative crystal studies - Ancef and Vancomycin started, but stopped after preliminary negative culture. - Repeat fluid aspiration completed 08/21 --> will follow up outpatient for results -Serum Lyme negative (2) Hypertension: Continue lisinopril and Metoprolol (3) Obstructive sleep apnea: Continue CPAP use at home (4) Anxiety: Continue Lexapro (5) GERD (gastroesophageal reflux disease): Continue Pantoprazole Plan Discharge to home with close ortho follow up Discharge Exam General: WN/WD, NAD, VS as above Resp: normal respiratory effort, lungs clear to auscultation CV: RRR, no murmur, Abd: normal bowel sounds, non tender, no hepatosplenomegaly Extremities: Aleksandr bandage over right knee, mild edema. Distal pulses and sensation intact. Neuro: A&O x3, Updated Medication List Medication Instructions Recorded Confirmed Type acetaminophen 325 mg capsule 325 mg PO QID PRN PAIN/FEVER 03/15/22 08/20/23 History (Tylenol) aspirin 81 mg tablet,delayed 81 mg PO PM 03/15/22 08/20/23 History release multivitamin (Daily Multi-Vitamin 1 tab PO PM 03/15/22 08/20/23 History tablet) escitalopram oxalate 20 mg tablet 20 mg PO PM 08/20/23 08/20/23 History (Lexapro) lisinopril 40 mg tablet 40 mg PO PM 08/20/23 08/20/23 History metoprolol succinate 25 mg 25 mg PO PM 08/20/23 08/20/23 History tablet,extended release 24 hr pantoprazole 40 mg tablet,delayed 40 mg PO PM 08/20/23 08/20/23 History release rosuvastatin 10 mg tablet 20 mg PO PM 08/20/23 08/20/23 History semaglutide 1 mg/dose (4 mg/3 mL) 1 mg subcut WK 08/20/23 08/20/23 History subcutaneous pen injector (Ozempic) Hospital Stay Data Consultations 08/20/23 16:35 ED Decision to Admit Stat 08/20/23 17:04 Consult Orthopedic Surgery Routine Pending Results Patient Have Any Pending Studies at Discharge: Yes Discharge Instructions Given to Patient (Per Discharging Provider) Mr. Torres You were hospitalized with right knee pain. The xray showed swelling but no fracture or trauma. The initial aspiration completed in the ER did not show signs of infection or gout. Your bloodwork for lyme disease was negative. We consulted orthopedics and they have left instructions down below. Your studies from the second aspiration are pending and they will discuss with you at your appointment on Monday. If you have any new or worsening symptoms please contact their office or return to the ER. It was our pleasure taking care of you, Sabrina Bee PA-C WBAT - weight bearing as tolerated ALEKSANDR for 36 hrs Ice Pain control w/ PO meds - ibuprofen 600mg every 6 hours as needed Aspiration preformed at bedside (fluid sent for studies) Injection of 40 mg of Depomedrol (steroid) IV antibiotics and colchicine stopped Follow up with Dr. Velasco at [facility] at 8:30 AM this Monday (08/25/23) With questions contact our clinic at . Total Time Total Time Spent Total Time Spent (In Minutes): 35 Supervising Physician Co-Signing Physician Notes PA Supervision Note: I personally saw and examined the patient. I verified all moran points and agree with NICK Bee with the following exceptions and/or additions: S-patient feeling better after repeat knee joint aspiration and steroid inj ection. No fevers, no chest pain or shortness of breath, otherwise feeling well. He was able to ambulate to the bathroom and back independently. I discussed his care with the orthopedics PA O- Vitals reviewed Gen: AAOx3, NAD HEENT: Anicteric sclerae, EOMI CV: RRR no mgr nl S1S2 Pulm: CTAB no wcr Abd: +BS soft NT ND no masses or hernias Ext: Right knee with Aleksandr wrap in place not removed Skin: No rashes, warm/dry Neuro: Full strength throughout CBC BMP, joint fluid studies and culture reviewed A/Y-13-donr-old male here with right knee joint pain and effusion, possible pseudogout although crystal studies negative. Does not appear to be an infected joint at this point based on preliminary negative cultures but this will be followed by orthopedics as an outpatient. Orthopedics does not feel he needs to continue on antibiotics for now and they will follow-up in the office. They did perform a steroid injection after repeat aspiration today. He is stable for discharge to home. Coding Level of Care Code 51336 INP/OBS DISCH >30 MIN Diagnoses Right knee pain M25.561 Hypertension I10 Obstructive sleep apnea G47.33 Anxiety F41.9 GERD (gastroesophageal reflux disease) K21.9
--- NOTE | 2023-08-21 14:44 | Orthopedic Progress Note ---
Date of Service August 21, 2023 Assessment & Plan (1) Effusion of knee joint right: Plan: NPO status was removed the patient was given his lunchtime meal He is weightbearing as tolerated on the right lower extremity. After obtaining verbal consent a right knee aspiration was performed. I easily expressed 27 mL of cloudy yellow fluid from the patient's right knee. I then attached a syringe containing 3 mL of 1% lidocaine solution and 40 mg of Depo-Medrol solution and injected into the patient's suprapatellar pouch area. Before performing this procedure the area was cleansed with a Betadine swab, likely with an alcohol soaked 4 x 4 anesthetized with 1 mL of 1% lidocaine solution subcutaneously. After removal of the needles site is again cleansed with alcohol soaked 4 x 4, withdrawn and sterile 4 x 4 covered with a sterile OpSite sponge and compressed with a new 6 inch Aleksandr bandage. Patient will ice 4-5 times daily for the next several days. I recommended that he use [id number] nonsteroidal agents for relief of pain and inflammation. I would like him to keep the Aleksandr bandage in place for the next 36 hours Synovial fluid was sent for cell count with differential, uric acid, crystals, aerobic and anaerobic culture with Gram stain. Patient will see Dr. Velasco this August 25 at 8:30 AM for his follow-up. I spoke with Dr. Woodruff who is covering the patient's. I advised her that from an orthopedic standpoint he is cleared for discharge and advised her that he is scheduled to follow-up in our clinic at the end of this week. Admission and Anticipated Discharge Date Admission Date: August 20, 2023 Subjective This 48-year-old male was seen today for insidious onset of the right knee effusion. Patient states that he had the knee aspirated and sent for cultures last evening. He states that the effusion has reoccurred. He states that he is not able to fully flex or extend at his knee. He denies any injury. He states that he did have a tick embedded in his skin several months ago. Patient was placed on IV antibiotics and admitted by medicine service. Dr. Velasco asked that I perform another aspiration and injected corticosteroid in the patient's right knee and advised that he is ready for discharge from an orthopedic standpoint and that he will follow-up in our clinic this coming Monday. Currently the patient denies chest pain, shortness of breath, fever, chills, sweats, nausea, vomiting, diarrhea, difficulty voiding knee redness or warmth or numbness or tingling in his right lower extremity. Review of Systems Review of Systems: All systems reviewed & are unremarkable except as noted in Subjective Physical Exam Physical Exam: Right knee: Aleksandr bandage was removed revealing a moderate-sized effusion of the suprapatellar pouch. Patient had tenderness to palpation over this area. Actively he has about 12 degrees short of terminal extension is able to reach about 125 degrees of flexion. There is no erythema, ecchymosis or warmth. There is no medial or lateral joint line tenderness. Patient's patella is able to be manipulated without crepitation. He has no laxity with varus or valgus stressing. He is able to perform an active straight leg raise test. He is neurovascularly intact in the right lower extremity. Results & Data Vital Signs (Past 12 Hours) Vital Signs Temp Pulse Resp BP BP Pulse Ox O2 Del Method 08/21/23 14:12 36.4 C L 81 16 134/71 128/78 95 08/21/23 07:51 36.4 C L 81 16 128/78 95 Room Air Diagnostic Findings Laboratory Results WBC 8.77 K/ul (4.8-10.8) 08/21/23 06:57 RBC 4.31 M/uL (4.70-6.10) L 08/21/23 06:57 Hgb 12.1 g/dl (14.0-18.0) L 08/21/23 06:57 Hct 37.7 % (42.0-52.0) L 08/21/23 06:57 MCV 87.5 fL (80.0-100.0) 08/21/23 06:57 MCH 28.1 pg (25.0-34.0) 08/21/23 06:57 MCHC 32.1 g/dL (32.0-36.0) 08/21/23 06:57 RDW Std Deviation 43.8 fL (36.4-46.3) 08/21/23 06:57 RDW Coeff of Sharifa 13.6 % (11.5-14.5) 08/21/23 06:57 Plt Count 294 K/uL (130-400) 08/21/23 06:57 MPV 10.4 fL (9.4-12.4) 08/21/23 06:57 Immature Gran % (Auto) 0.3 % 08/21/23 06:57 Neut % (Auto) 68.8 % 08/21/23 06:57 Lymph % (Auto) 17.6 % 08/21/23 06:57 [place] % (Auto) 11.6 % 08/21/23 06:57 Eos % (Auto) 1.4 % 08/21/23 06:57 Baso % (Auto) 0.3 % 08/21/23 06:57 Neut # (Auto) 6.03 K/uL (1.40-6.50) 08/21/23 06:57 Lymph # (Auto) 1.54 K/uL (1.20-3.40) 08/21/23 06:57 [place] # (Auto) 1.02 K/uL (0.11-0.59) H 08/21/23 06:57 Eos # (Auto) 0.12 K/uL (0.00-0.50) 08/21/23 06:57 Baso # (Auto) 0.03 K/uL (0.00-0.20) 08/21/23 06:57 Immature Gran # (Auto) 0.03 K/uL (0.01-0.20) 08/21/23 06:57 ESR 70 mm/hr (0-15) H 08/20/23 11:21 Sodium 137 mmol/L (136-145) 08/21/23 06:57 Potassium 4.2 mmol/L (3.5-5.1) 08/21/23 06:57 Chloride 103 mmol/L (98-107) 08/21/23 06:57 Carbon Dioxide 30 mmol/L (21-32) 08/21/23 06:57 Anion Gap 4 (3-11) 08/21/23 06:57 BUN 16 mg/dl (6-23) 08/21/23 06:57 Creatinine 0.92 mg/dl (0.6-1.4) 08/21/23 06:57 Est Cr Clr Drug Dosing 121.7 ml/min 08/21/23 06:57 Est GFR ( Amer) 113.6 ml/min 08/21/23 06:57 Est GFR (Non-Af Amer) 98.0 ml/min 08/21/23 06:57 BUN/Creatinine Ratio 17.4 (10-20) 08/21/23 06:57 Glucose 99 mg/dl (70-99(Fasting)) 08/21/23 06:57 Uric Acid 5.9 mg/dl (2.6-7.2) 08/20/23 11:21 Calcium 8.5 mg/dl (8.6-10.3) L 08/21/23 06:57 Total Bilirubin 0.6 mg/dl (0.2-1.0) 08/20/23 11:21 AST 13 U/L (13-39) 08/20/23 11:21 ALT 15 U/L (7-52) 08/20/23 11:21 Alkaline Phosphatase 45 U/L (34-104) 08/20/23 11:21 C-Reactive Protein 19.71 mg/dl (0-0.5) H 08/20/23 11:21 Total Protein 7.8 gm/dl (6.0-8.3) 08/20/23 11:21 Albumin 4.3 gm/dl (3.4-5.0) 08/20/23 11:21 Globulin 3.5 gm/dl (2.5-4.0) 08/20/23 11:21 Albumin/Globulin Ratio 1.2 (0.9-2) 08/20/23 11:21 Procalcitonin 0.17 ng/ml (0-0.5) 08/20/23 11:31 Fluid Comment 08/21/23 Unknown Synovial Source Right Knee 08/20/23 13:42 Synovial Color Meghan 08/20/23 13:42 Synovial Appearance Cloudy 08/20/23 13:42 Synovial WBC (Auto) 23212 /ul (0-200) H 08/20/23 13:42 Synovial RBC (Auto) 92736 /uL 08/20/23 13:42 Synovial Polynuclear % 93.8 % 08/20/23 13:42 Synovial Mononuclear % 6.2 % 08/20/23 13:42 Synovial Crystals 08/20/23 13:42 Lyme Disease IgG Ab Negative (Negative) 08/20/23 11:21 Lyme Disease IgM Ab Negative (Negative) 08/20/23 11:21 Impressions Knee X-Ray 08/20/23 10:42 RIGHT KNEE 2 VIEWS CLINICAL HISTORY: Atraumatic right knee pain. FINDINGS: AP and crosstable lateral views of the right knee are obtained. No prior studies are available for comparison at the time of dictation. The skeletal structures are well mineralized. No fracture is seen. There is degenerative narrowing at the patellofemoral articulation. The medial and lateral joint spaces are maintained. There are small patellar enthesophytes, marginal osteophytes, and degenerative beaking of the tibial spine. There is a joint effusion. Mild soft tissue swelling is seen around the knee. IMPRESSION: 1. Soft tissue swelling and joint effusion with no radiographic evidence of acute fracture. 2. Mild degenerative change as above. Electronically signed by: Timo Oseguera M.D. 08/20/2023 11:11 AM
[2023-08-21 15:31] LABS: Appearance Synovial Fluid Cloudy; Color Synovial Fluid Straw; Mononuclear WBC Synovial 7.7 %; Polynuclear WBC Synovial 92.3 %; RBC Synovial Fluid Auto 5000 /uL; Source Synovial Fluid Right Knee; WBC Synovial Fluid Auto 31015 /ul (0-200)
[2023-08-23 21:12] LABS: Lyme DNA PCR CSF or Synovial Not Detected (Not Detected); Lyme DNA Source SYNOVIAL FLUID
== END 2023-08-21 16:28 | disposition home or self-care (01) ==
LOC: ED 10:16 → 3W 10:16 → SUATTDRO 16:28 → 3W 18:10